=== PATIENT | male | born 2005 | race Two or more races ===

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

== ENCOUNTER 2025-03-01 13:19 | Observation (INO) | payer OTHER ==
[2025-03-01] MEDS ORDERED: Dexamethasone 10 MG/ML VIAL ONE (13:53)
[2025-03-01] MEDS ORDERED: Magnesium 2 GM/50 ML BAG (IN WATER) ONE (13:54)
[2025-03-01 13:59] LABS: #Basophils 0.04 10x3/uL (0.0-0.2); #Eosinophils 0.11 10x3/uL (0.0-0.5); #Monocytes 1.57 10x3/uL (0.0-1.1); #Neutrophils 14.11 10x3/uL (1.5-8.4); %Basophils 0.2 % (0.0-2.0); %Eosinophils 0.6 % (0.0-6.0); %Lymphocytes 6.3 % (18.0-47.0); %Monocytes 9.3 % (0.0-10.0); %Neutrophils 83.3 % (40.0-75.0); Hematocrit 46.7 % (38.8-50.0); Hemoglobin 15.6 g/dL (13.5-17.5); Mean Corpuscular Hemoglobin 28.8 pg (27.0-33.0); Mean Corpuscular Volume 86.2 fL (81.2-95.1); Platelet Count 366 10x3/uL (150-450); Red Blood Cell (RBC) Count 5.42 10x6/uL (4.32-5.72); White Blood Cell (WBC) Count 16.94 10x3/uL (3.5-10.5)
[2025-03-01] MEDS ORDERED: Ondansetron PF 4 MG/2 ML Vial ONE (14:01)
[2025-03-01] MEDS ORDERED: Albuterol 2.5 MG (0.5 mL) NEB ONE ×3 (14:03→15:18)
[2025-03-01] MEDS ORDERED: Albuterol 2.5 MG (3 mL) NEB ONE ×2 (14:03→15:16)
[2025-03-01 14:17] LABS: ALT (SGPT) 19 U/L (Less than 45); AST (SGOT) 23 U/L (11-34); Albumin 4.9 g/dL (3.1-4.5); Alkaline Phosphatase 80 U/L (50-130); Anion Gap 17 mmol/L (10-20); BUN (Urea Nitrogen) 10 mg/dL (8.4-21.0); Bilirubin, Total 2.3 mg/dL (0.3-1.2); Calc. Creatinine Clearance 0 mL/min (70-130); Calcium 10.2 mg/dL (7.8-10.44); Carbon Dioxide 26 mmol/L (22-29); Chloride 103 mmol/L (98-107); Globulin 3.2 g/dL (2.4-3.5); Glucose 87 mg/dL (70-105); Potassium 3.9 mmol/L (3.5-5.1); Sodium 142 mmol/L (136-145)
[2025-03-01] MEDS ORDERED: Melatonin 3 MG TAB PO PRN (17:06)
[2025-03-01 17:16] VITALS: BMI 24.4
[2025-03-01] MEDS ORDERED: Guaifenesin DM 100-10/5 ML UDCUP PO PRN (17:17)
[2025-03-01] MEDS: PNEUMOC 20-VAL CONJ-DIP CRM/PF 0.5 ML SYRINGE IM ONE (17:53)
[2025-03-01] MEDS: Azithromycin 250 MG TAB PO SCH (17:59)
[2025-03-01] MEDS: Famotidine 20 MG TAB PO SCH (20:09)
[2025-03-01] MEDS: Acetaminophen 325 MG TAB PO PRN (20:10)
[2025-03-02 04:26] LABS: #Basophils Less than 0.03 10x3/uL (0.0-0.2); #Eosinophils Less than 0.03 10x3/uL (0.0-0.5); #Monocytes 1.29 10x3/uL (0.0-1.1); #Neutrophils 11.56 10x3/uL (1.5-8.4); %Basophils 0.1 % (0.0-2.0); %Eosinophils 0.0 % (0.0-6.0); %Lymphocytes 7.4 % (18.0-47.0); %Monocytes 9.2 % (0.0-10.0); %Neutrophils 82.9 % (40.0-75.0); Hematocrit 43.3 % (38.8-50.0); Hemoglobin 14.5 g/dL (13.5-17.5); Mean Corpuscular Hemoglobin 28.8 pg (27.0-33.0); Mean Corpuscular Volume 86.1 fL (81.2-95.1); Platelet Count 354 10x3/uL (150-450); Red Blood Cell (RBC) Count 5.03 10x6/uL (4.32-5.72); White Blood Cell (WBC) Count 13.95 10x3/uL (3.5-10.5)
[2025-03-02 08:41] VITALS: BP 148/81; TEMP 98.3
[2025-03-02] MEDS: predniSONE 20 MG TAB PO SCH (09:52)
[2025-03-02] MEDS: Enoxaparin 40 MG (0.4 mL) SYRINGE SC SCH (09:53)
== END 2025-03-02 11:00 | disposition home or self-care (01) ==
LOC: CSHERS 13:19 → CSHTELE 16:30
PROVIDERS: ADMIT Internal Medicine; ATTEND Internal Medicine
DX: J45.901 Unspecified asthma with (acute) exacerbation (principal)
CPT/HCPCS: 36415; 71045; 80053; 85025; 87428; 93005; 93010; 94644; 94760; 96374; 96375; G0378; J1100; J2405; J3475; J7512; J7611; J7620